=== PATIENT | female | born 1945 | race Caucasian/White ===

== ENCOUNTER 2017-02-24 09:17 | Emergency (ER) | payer MEDICARE, MEDICAID ==
[~2017-02-24] VITALS: Ht 152.4 cm; Wt 68.0 kg
[~2017-02-24 09:17] MED LIST: ALEN70SO3 PO; ASPI-1159 PO; ATOR-2 PO; DILT240C91 PO; ERGO500013 PO; FERR-63 PO; FURO20TA4 PO; HYDR12.529 PO; INSLAN SQ; ZET10 PO
[2017-02-24] MEDS ORDERED: MORPHINE SULFATE 4 MG/ML CPJ (NOT FOR IM USE) IV STA (09:58)
[2017-02-24] MEDS ORDERED: ONDANSETRON HCL 4MG/2ML VIAL IV STA (09:58)
[2017-02-24] MEDS ORDERED: SODIUM CHLORIDE 0.9% 500 ML IV ONE (09:58)
[2017-02-24 10:01] VITALS: BP 154/70
[2017-02-24 10:13] LABS: BASOPHILS % 0.8 % (0.0-2.0); EOSINOPHILS % 3.6 % (0.0-5.0); HEMATOCRIT. 27.5 % (36.0-48.0); HEMOGLOBIN. 9.1 g/dL (12.0-16.0); LYMPHOCYTES % 28.2 % (20.0-50.0); MEAN CORPUSCULAR HEMOGLOBIN 29.9 pg (28.0-32.0); MEAN CORPUSCULAR VOLUME 90.2 fL (81.0-99.0); MEAN PLATELET VOLUME 8.3 fl (7.4-10.4); MONOCYTES % 7.1 % (2.0-8.0); NEUTROPHILS % 60.3 % (40.0-76.0); PLATELET 291 x1000/uL (130-400); RED BLOOD CELL COUNT 3.05 mill/uL (4.2-5.4); RED CELL DISTRIBUTION WIDTH 14.5 % (11.6-14.6)
[2017-02-24 10:20] LABS: CHLORIDE 108 mEq/L (98-107)
[2017-02-24 10:22] LABS: PARTIAL THROMBOPLASTIN TIME 26.8 sec (23.4-31.0); PROTHROMBIN TIME 10.8 sec (9.4-11.6)
[2017-02-24 10:28] LABS: CARBON DIOXIDE 21 mEq/L (21-32)
== END 2017-02-24 13:04 | disposition home or self-care (01) ==
LOC: ER 10:27
DX: M48.00 Spinal stenosis, site unspecified (principal); M54.5 Low back pain; N28.9 Disorder of kidney and ureter, unspecified; I10 Essential (primary) hypertension; E11.9 Type 2 diabetes mellitus without complications; E78.00 Pure hypercholesterolemia, unspecified; Z79.4 Long term (current) use of insulin; Z79.82 Long term (current) use of aspirin
CPT/HCPCS: 36415; 72148; 80053; 83690; 85025; 85610; 85730; 96361; 96374; 96375; 99285; J2270; J2405; J7030; J7040

== ENCOUNTER 2017-06-25 11:08 | Emergency (ER) | payer MEDICARE, MEDICAID ==
[~2017-06-25] VITALS: Ht 152.4 cm; Wt 60.0 kg
[2017-06-25] MEDS ORDERED: SODIUM CHLORIDE 0.9% 1000ML BAG (SEPSIS BOLUS) IV ONE (14:15)
[2017-06-25 14:41] LABS: BASOPHILS % 0.7 % (0.0-2.0); EOSINOPHILS % 0.8 % (0.0-5.0); HEMATOCRIT. 30.5 % (36.0-48.0); HEMOGLOBIN. 10.3 g/dL (12.0-16.0); LYMPHOCYTES % 30.4 % (20.0-50.0); MEAN CORPUSCULAR HEMOGLOBIN 29.6 pg (28.0-32.0); MEAN CORPUSCULAR VOLUME 87.8 fL (81.0-99.0); MEAN PLATELET VOLUME 9.4 fl (7.4-10.4); MONOCYTES % 7.1 % (2.0-8.0); PLATELET 282 x1000/uL (130-400); RED BLOOD CELL COUNT 3.48 mill/uL (4.2-5.4); RED CELL DISTRIBUTION WIDTH 13.5 % (11.6-14.6)
[2017-06-25 14:53] LABS: BETA HYDROXYBUTYRATE 0.3 mMol/L (0.0-0.3); PHOSPHORUS 3.8 mg/dL (2.5-4.9)
[2017-06-25] MEDS ORDERED: INSULIN REGULAR (HUMULIN R) UD 100 UNITS/ML SYR IV ONE (16:15)
[2017-06-25 16:36] LABS: CLARITY URINE CLEAR (CLEAR); COLOR URINE YELLOW (YELLOW); KETONES URINE NEGATIVE (NEGATIVE); LEUKOCYTE ESTERASE URINE TRACE (NEGATIVE); NITRITE URINE NEGATIVE (NEGATIVE); OCCULT BLOOD URINE TRACE (NEGATIVE); PH URINE 6.5 (4.5-8.0); PROTEIN URINE 2+ (NEGATIVE); SPECIFIC GRAVITY URINE 1.019 (1.005-1.030); UROBILINOGEN URINE 0.2 E.U./dL (0.2-1.0)
[2017-06-25] MEDS ORDERED: INSULIN REGULAR (HUMULIN R) 300UNITS/3ML IV NR (16:45)
[2017-06-25 18:45] VITALS: BP 149/72
== END 2017-06-25 19:08 | disposition home or self-care (01) ==
LOC: ER 11:08
DX: E11.65 Type 2 diabetes mellitus with hyperglycemia (principal); I12.9 Hypertensive chronic kidney disease with stage 1 through stage 4 chronic kidney disease, or unspecified chronic kidney disease; N18.9 Chronic kidney disease, unspecified; E78.00 Pure hypercholesterolemia, unspecified; Z79.4 Long term (current) use of insulin
CPT/HCPCS: 36415; 80048; 81001; 82010; 82962; 83605; 83735; 84100; 85025; 96361; 96374; 99285; J1815; J7030

== ENCOUNTER 2019-05-03 16:40 | Inpatient (IN) | payer MEDICARE, MEDICAID ==
[~2019-05-03] VITALS: Ht 152.4 cm; Wt 70.4 kg
[~2019-05-03 16:40] MED LIST changes: -ASPI-1159 PO; +ASPI-1393 PO; +EZET10TA13 PO; -ZET10 PO
[2019-05-03] MEDS ORDERED: DEXTROSE 50% WATER 50ML SYRINGE IV PRN (17:30)
[2019-05-03] MEDS ORDERED: MAGNESIUM/ALUMINUM HYDROXIDE/SIMETHICONE 30ML UDC PO PRN (17:30)
[2019-05-03] MEDS ORDERED: HYDROCODONE/ACETAMINOPHEN 5/325MG TABLET PO PRN (17:30)
[2019-05-03] MEDS ORDERED: ONDANSETRON 4MG ODT PO PRN (17:30)
[2019-05-03] MEDS ORDERED: INSNPH SUBCUT (18:48)
[2019-05-03] MEDS ORDERED: ATOR-2 PO (19:00)
[2019-05-03] MEDS ORDERED: KETO5DRO80 EACHEYE (19:00)
[2019-05-03] MEDS ORDERED: FAMO20TA8 PO (19:00)
[2019-05-03] MEDS ORDERED: ERYT1OIN6 EACHEYE ×2 (19:00→19:10)
[2019-05-03] MEDS ORDERED: NIFE20CA PO (19:08)
[2019-05-03] MEDS ORDERED: AMLO25PO MC (19:08)
[2019-05-03] MEDS ORDERED: PRO1 MT (19:08)
[2019-05-03] MEDS ORDERED: AMLO10TA80 PO (19:08)
[2019-05-03] MEDS ORDERED: CALC-1098 MT (19:08)
[2019-05-03 20:00] VITALS: BP_SYST 168; BP_SYST 169; BP_DIAS 64
[2019-05-03] MEDS: ATORVASTATIN CALCIUM 40MG TABLET PO SCH (20:14)
[2019-05-03] MEDS: HYDRALAZINE HCL 50MG TABLET PO SCH (20:14)
[2019-05-03] MEDS: NIFEDIPINE XL 60MG TAB PO SCH (20:15)
[2019-05-03] MEDS: METOPROLOL TARTRATE 25MG TABLET PO SCH (20:15)
[2019-05-03] MEDS: ACETAMINOPHEN 325MG TABLET PO PRN (20:16)
[2019-05-03] MEDS: BLOOD SUGAR DIAGNOSTIC STRIP TEST SCH (21:41)
[2019-05-03] MEDS: INSULIN LISPRO 100 UNITS/ML SUBCUT SCH (22:34)
[2019-05-04 06:16] LABS: BASOPHILS % 0.9 % (0.0-2.0); EOSINOPHILS % 3.7 % (0.0-5.0); HEMATOCRIT. 22.2 % (36.0-48.0); HEMOGLOBIN. 7.6 g/dL (12.0-16.0); LYMPHOCYTES % 21.8 % (20.0-50.0); MEAN CORPUSCULAR HEMOGLOBIN 31.3 pg (28.0-32.0); MEAN CORPUSCULAR VOLUME 91.3 fL (81.0-99.0); MEAN PLATELET VOLUME 8.4 fl (7.4-10.4); MONOCYTES % 8.4 % (2.0-8.0); NEUTROPHILS % 65.2 % (40.0-76.0); PLATELET 248 x1000/uL (130-400); RED BLOOD CELL COUNT 2.43 mill/uL (4.2-5.4); RED CELL DISTRIBUTION WIDTH 14.8 % (11.6-14.6)
[2019-05-04 06:20] LABS: CHLORIDE 109 mEq/L (98-107)
[2019-05-04] MEDS: INSULIN LISPRO 100 UNITS/ML SUBCUT SCH ×4 (07:22→22:08)
[2019-05-04] MEDS: BLOOD SUGAR DIAGNOSTIC STRIP TEST SCH ×4 (07:22→21:17)
[2019-05-04 07:51] VITALS: BP 157/54
[2019-05-04 08:00] VITALS: BP 154/54
[2019-05-04] MEDS: NIFEDIPINE XL 60MG TAB PO SCH ×2 (08:43→21:17)
[2019-05-04] MEDS: ASPIRIN 81MG TABLET PO SCH (08:43)
[2019-05-04] MEDS: METOPROLOL TARTRATE 25MG TABLET PO SCH ×2 (08:43→21:17)
[2019-05-04] MEDS: HYDRALAZINE HCL 50MG TABLET PO SCH ×3 (08:43→22:03)
[2019-05-04] MEDS: CLOPIDOGREL 75MG TABLET PO SCH (08:43)
[2019-05-04] MEDS: DOCUSATE SODIUM 100MG CAPSULE PO SCH ×2 (08:43→17:46)
[2019-05-04] MEDS: INSULIN NPH (HUMULIN-N) 100 UNITS/ML 3ML VIAL SUBCUT SCH ×2 (09:00→17:59)
[2019-05-04 12:38] VITALS: BP 136/55
[2019-05-04 20:00] VITALS: BP 157/64
[2019-05-04] MEDS: ATORVASTATIN CALCIUM 40MG TABLET PO SCH (21:17)
[2019-05-04] MEDS: ACETAMINOPHEN 325MG TABLET PO PRN (21:18)
[2019-05-05] MEDS: HYDRALAZINE HCL 50MG TABLET PO SCH ×2 (06:17→13:53)
[2019-05-05] MEDS: BLOOD SUGAR DIAGNOSTIC STRIP TEST SCH ×4 (06:17→21:02)
[2019-05-05] MEDS: INSULIN LISPRO 100 UNITS/ML SUBCUT SCH ×4 (06:26→22:08)
[2019-05-05 08:12] VITALS: BP 125/49
[2019-05-05] MEDS: FAMOTIDINE 40MG TABLET PO SCH (08:38)
[2019-05-05] MEDS: METOPROLOL TARTRATE 25MG TABLET PO SCH ×2 (08:39→21:01)
[2019-05-05] MEDS: CLOPIDOGREL 75MG TABLET PO SCH (08:39)
[2019-05-05] MEDS: ASPIRIN 81MG TABLET PO SCH (08:39)
[2019-05-05] MEDS: DOCUSATE SODIUM 100MG CAPSULE PO SCH ×2 (08:39→17:00)
[2019-05-05] MEDS: NIFEDIPINE XL 60MG TAB PO SCH ×2 (08:40→21:01)
[2019-05-05] MEDS: INSULIN NPH (HUMULIN-N) 100 UNITS/ML 3ML VIAL SUBCUT SCH ×2 (08:47→17:11)
[2019-05-05] MEDS ORDERED: FAMOTIDINE 20MG TABLET PO SCH (09:00)
[2019-05-05] MEDS ORDERED: BISACODYL 5MG TABLET PO PRN (09:30)
[2019-05-05] MEDS: LORATADINE 10MG TABLET PO SCH (13:03)
[2019-05-05 13:30] VITALS: BP 127/52
[2019-05-05] MEDS: HYDRALAZINE HCL 25MG TABLET PO SCH ×2 (14:30→22:03)
[2019-05-05 16:30] VITALS: BP 135/55
[2019-05-05] MEDS: CARBAMIDE PEROXIDE 6.5% OTIC SOLN 15ML RIGHT EAR SCH (17:43)
[2019-05-05] MEDS: ACETAMINOPHEN 325MG TABLET PO PRN (17:59)
[2019-05-05 20:00] VITALS: BP 140/59
[2019-05-05] MEDS: ATORVASTATIN CALCIUM 40MG TABLET PO SCH (21:01)
[2019-05-06] MEDS: BLOOD SUGAR DIAGNOSTIC STRIP TEST SCH ×4 (06:13→21:13)
[2019-05-06] MEDS: HYDRALAZINE HCL 25MG TABLET PO SCH ×3 (06:13→22:03)
[2019-05-06 07:26] LABS: BASOPHILS % 0.6 % (0.0-2.0); EOSINOPHILS % 3.1 % (0.0-5.0); HEMATOCRIT. 21.2 % (36.0-48.0); HEMOGLOBIN. 7.1 g/dL (12.0-16.0); LYMPHOCYTES % 22.5 % (20.0-50.0); MEAN CORPUSCULAR HEMOGLOBIN 30.9 pg (28.0-32.0); MEAN CORPUSCULAR VOLUME 92.5 fL (81.0-99.0); MEAN PLATELET VOLUME 8.2 fl (7.4-10.4); MONOCYTES % 7.8 % (2.0-8.0); PLATELET 256 x1000/uL (130-400); RED BLOOD CELL COUNT 2.29 mill/uL (4.2-5.4); RED CELL DISTRIBUTION WIDTH 15.6 % (11.6-14.6)
[2019-05-06 08:00] VITALS: BP 127/52
[2019-05-06 08:07] LABS: CHLORIDE 108 mEq/L (98-107)
[2019-05-06 08:11] LABS: PHOSPHORUS 5.1 mg/dL (2.5-4.9); TOTAL IRON BINDING CAPACITY 184 ug/dL (250-450)
[2019-05-06] MEDS: CLOPIDOGREL 75MG TABLET PO SCH (08:37)
[2019-05-06] MEDS: ASPIRIN 81MG TABLET PO SCH (08:37)
[2019-05-06] MEDS: NIFEDIPINE XL 60MG TAB PO SCH ×2 (08:38→21:13)
[2019-05-06] MEDS: METOPROLOL TARTRATE 25MG TABLET PO SCH ×2 (08:38→21:12)
[2019-05-06] MEDS: LORATADINE 10MG TABLET PO SCH (08:38)
[2019-05-06] MEDS: FAMOTIDINE 40MG TABLET PO SCH (08:38)
[2019-05-06] MEDS: DOCUSATE SODIUM 100MG CAPSULE PO SCH ×2 (08:40→17:00)
[2019-05-06] MEDS: CARBAMIDE PEROXIDE 6.5% OTIC SOLN 15ML RIGHT EAR SCH ×2 (08:41→21:10)
[2019-05-06] MEDS: INSULIN LISPRO 100 UNITS/ML SUBCUT SCH ×4 (09:00→21:20)
[2019-05-06] MEDS: INSULIN NPH (HUMULIN-N) 100 UNITS/ML 3ML VIAL SUBCUT SCH ×2 (09:00→17:04)
[2019-05-06 09:20] LABS: VITAMIN B12 SERUM > 2000.0 pg/mL (211-911)
[2019-05-06 14:20] VITALS: BP 139/59
[2019-05-06 14:52] LABS: FERRITIN 318 ng/mL (10-291)
[2019-05-06 20:00] VITALS: BP 135/56
[2019-05-06] MEDS: ACETAMINOPHEN 325MG TABLET PO PRN (21:11)
[2019-05-06] MEDS: ATORVASTATIN CALCIUM 40MG TABLET PO SCH (21:13)
[2019-05-07] MEDS: HYDRALAZINE HCL 25MG TABLET PO SCH ×3 (05:24→21:56)
[2019-05-07] MEDS: BLOOD SUGAR DIAGNOSTIC STRIP TEST SCH ×4 (06:02→20:06)
[2019-05-07] MEDS: INSULIN LISPRO 100 UNITS/ML SUBCUT SCH ×4 (06:06→20:14)
[2019-05-07 07:11] LABS: CLARITY URINE CLEAR (CLEAR); COLOR URINE YELLOW (YELLOW); KETONES URINE NEGATIVE (NEGATIVE); LEUKOCYTE ESTERASE URINE NEGATIVE (NEGATIVE); NITRITE URINE NEGATIVE (NEGATIVE); OCCULT BLOOD URINE NEGATIVE (NEGATIVE); PH URINE 5.5 (4.5-8.0); PROTEIN URINE 2+ (NEGATIVE); SPECIFIC GRAVITY URINE 1.009 (1.005-1.030); UROBILINOGEN URINE 0.2 E.U./dL (0.2-1.0)
[2019-05-07 07:23] LABS: BASOPHILS % 0.6 % (0.0-2.0); LYMPHOCYTES % 24.9 % (20.0-50.0); MEAN CORPUSCULAR VOLUME 92.9 fL (81.0-99.0); MEAN PLATELET VOLUME 8.6 fl (7.4-10.4); MONOCYTES % 9.2 % (2.0-8.0); NEUTROPHILS % 62.3 % (40.0-76.0); PLATELET 255 x1000/uL (130-400); RED BLOOD CELL COUNT 2.25 mill/uL (4.2-5.4); RED CELL DISTRIBUTION WIDTH 15.4 % (11.6-14.6)
[2019-05-07 07:46] LABS: PHOSPHORUS 4.7 mg/dL (2.5-4.9)
[2019-05-07 07:48] LABS: HEMATOCRIT. 20.9 % (36.0-48.0)
[2019-05-07 08:00] VITALS: BP 128/59
[2019-05-07] MEDS: ASPIRIN 81MG TABLET PO SCH (09:53)
[2019-05-07] MEDS: METOPROLOL TARTRATE 25MG TABLET PO SCH ×2 (09:54→20:05)
[2019-05-07] MEDS: LORATADINE 10MG TABLET PO SCH (09:54)
[2019-05-07] MEDS: DOCUSATE SODIUM 100MG CAPSULE PO SCH ×2 (09:54→18:08)
[2019-05-07] MEDS: NIFEDIPINE XL 60MG TAB PO SCH ×2 (09:54→20:06)
[2019-05-07] MEDS: FAMOTIDINE 20MG TABLET PO SCH (09:54)
[2019-05-07] MEDS: CLOPIDOGREL 75MG TABLET PO SCH (09:55)
[2019-05-07] MEDS: INSULIN NPH (HUMULIN-N) 100 UNITS/ML 3ML VIAL SUBCUT SCH ×2 (10:21→18:23)
[2019-05-07] MEDS: CARBAMIDE PEROXIDE 6.5% OTIC SOLN 15ML RIGHT EAR SCH ×2 (10:22→18:09)
[2019-05-07 13:25] VITALS: BP 149/59
[2019-05-07 14:25] VITALS: BP 143/62
[2019-05-07 15:22] VITALS: BP 152/64
[2019-05-07] MEDS: ACETAMINOPHEN 325MG TABLET PO PRN (18:08)
[2019-05-07 20:00] VITALS: BP 155/66
[2019-05-07] MEDS: ATORVASTATIN CALCIUM 40MG TABLET PO SCH (20:06)
[2019-05-08] MEDS: HYDRALAZINE HCL 25MG TABLET PO SCH ×2 (05:38→13:22)
[2019-05-08] MEDS: BLOOD SUGAR DIAGNOSTIC STRIP TEST SCH ×2 (05:41→11:40)
[2019-05-08] MEDS: INSULIN LISPRO 100 UNITS/ML SUBCUT SCH ×2 (06:05→13:26)
[2019-05-08 07:49] LABS: CHLORIDE 109 mEq/L (98-107)
[2019-05-08 07:54] LABS: PHOSPHORUS 4.8 mg/dL (2.5-4.9)
[2019-05-08 08:06] LABS: BASOPHILS % 0.8 % (0.0-2.0); EOSINOPHILS % 0.8 % (0.0-5.0); HEMATOCRIT. 25.1 % (36.0-48.0); LYMPHOCYTES % 12.8 % (20.0-50.0); MEAN CORPUSCULAR HEMOGLOBIN 31.5 pg (28.0-32.0); MEAN CORPUSCULAR VOLUME 92.7 fL (81.0-99.0); MEAN PLATELET VOLUME 8.5 fl (7.4-10.4); MONOCYTES % 5.7 % (2.0-8.0); NEUTROPHILS % 79.9 % (40.0-76.0); PLATELET 254 x1000/uL (130-400); RED BLOOD CELL COUNT 2.71 mill/uL (4.2-5.4)
[2019-05-08 08:14] VITALS: BP 138/62
[2019-05-08 08:22] LABS: HEMOGLOBIN. 8.5 g/dL (12.0-16.0)
[2019-05-08] MEDS: FAMOTIDINE 20MG TABLET PO SCH (08:28)
[2019-05-08] MEDS: CLOPIDOGREL 75MG TABLET PO SCH (08:28)
[2019-05-08] MEDS: LORATADINE 10MG TABLET PO SCH (08:28)
[2019-05-08] MEDS: ASPIRIN 81MG TABLET PO SCH (08:28)
[2019-05-08] MEDS: NIFEDIPINE XL 60MG TAB PO SCH (08:28)
[2019-05-08] MEDS: METOPROLOL TARTRATE 25MG TABLET PO SCH (08:28)
[2019-05-08] MEDS: DOCUSATE SODIUM 100MG CAPSULE PO SCH (08:29)
[2019-05-08] MEDS: CARBAMIDE PEROXIDE 6.5% OTIC SOLN 15ML RIGHT EAR SCH (08:34)
[2019-05-08] MEDS: INSULIN NPH (HUMULIN-N) 100 UNITS/ML 3ML VIAL SUBCUT SCH (08:36)
[2019-05-08 11:44] VITALS: BP 138/62
[2019-05-08 13:23] VITALS: BP 135/58
[2019-05-09] MEDS ORDERED: EPOETIN ALFA 10000UNITS/ML VIAL SUBCUT SCH (21:00)
[2019-05-12 13:11] LABS: 25-HYDROXY VITAMIN D3 21 ng/mL (.)
== END 2019-05-08 15:51 | disposition home health service (06) | DRG 280 ==
PROVIDERS: ADMIT Physical Medicine & Rehabilitation Spinal Cord Injury Medicine; ATTEND Hospitalist
PROC: 30233N1 Transfusion of Nonautologous Red Blood Cells into Peripheral Vein, Percutaneous Approach (ICD-10-PCS; principal; 2019-05-07)
DX: I21.4 Non-ST elevation (NSTEMI) myocardial infarction (principal); I50.33 Acute on chronic diastolic (congestive) heart failure; N18.4 Chronic kidney disease, stage 4 (severe); N17.9 Acute kidney failure, unspecified; I13.0 Hypertensive heart and chronic kidney disease with heart failure and stage 1 through stage 4 chronic kidney disease, or unspecified chronic kidney disease; E46 Unspecified protein-calorie malnutrition; D63.1 Anemia in chronic kidney disease; E11.22 Type 2 diabetes mellitus with diabetic chronic kidney disease; K21.9 Gastro-esophageal reflux disease without esophagitis; M81.0 Age-related osteoporosis without current pathological fracture; E11.65 Type 2 diabetes mellitus with hyperglycemia; K59.09 Other constipation; H91.91 Unspecified hearing loss, right ear; E78.5 Hyperlipidemia, unspecified; I25.5 Ischemic cardiomyopathy; E61.1 Iron deficiency; E66.01 Morbid (severe) obesity due to excess calories; E78.00 Pure hypercholesterolemia, unspecified; I25.10 Atherosclerotic heart disease of native coronary artery without angina pectoris; I25.2 Old myocardial infarction; M21.70 Unequal limb length (acquired), unspecified site; Z79.4 Long term (current) use of insulin; Z95.5 Presence of coronary angioplasty implant and graft; Z68.30 Body mass index [BMI] 30.0-30.9, adult
CPT/HCPCS: 36415; 80048; 80053; 81003; 82270; 82306; 82607; 82728; 82746; 82962; 83540; 83550; 83735; 84100; 84134; 84443; 85025; 86850; 86900; 86920; 93970; 97110; 97116; 97162; 97166; 97530; 97535; J1815; J7040; P9016

== ENCOUNTER 2019-05-23 08:19 | Inpatient (IN) | payer MEDICARE, MEDICAID ==
[~2019-05-23] VITALS: Ht 162.6 cm; Wt 68.6 kg
[2019-05-23] VITALS (45 sets, daily range): BP systolic 109–157; BP diastolic 54–80
[~2019-05-23 08:19] MED LIST changes: +AMLO10TA80 PO; +AMLO25PO MC; -ASPI-1393 PO; +ASPI-1497 PO; +CALC-1098 MT; +ERYT1OIN6 EACHEYE; +FAMO20TA8 PO; +INSNPH SUBCUT; +KETO5DRO80 EACHEYE; +NIFE20CA PO; +PRO1 MT
[2019-05-23] MEDS ORDERED: NITROGLYCERIN 50MCG/ML 10ML VIAL (CATH LAB) IV ONE (08:50)
[2019-05-23] MEDS ORDERED: HEPARIN SODIUM 1,000 UNIT/1ML VIAL IV ONE ×2 (08:50→10:38)
[2019-05-23] MEDS ORDERED: PHENYLEPHRINE 100MCG/ML 10ML VIAL (CATH LAB) IV ONE (08:50)
[2019-05-23] MEDS ORDERED: NICARDIPINE 100MCG/ML 10ML VIAL (CATH LAB) IV ONE (08:50)
[2019-05-23] MEDS ORDERED: MORPHINE SULFATE 4 MG/ML CPJ (NOT FOR IM USE) IV STA (09:14)
[2019-05-23 09:26] LABS: BASOPHILS % 0.6 % (0.0-2.0); EOSINOPHILS % 1.9 % (0.0-5.0); HEMATOCRIT. 28.5 % (36.0-48.0); HEMOGLOBIN. 9.4 g/dL (12.0-16.0); LYMPHOCYTES % 13.3 % (20.0-50.0); MEAN CORPUSCULAR HEMOGLOBIN 30.7 pg (28.0-32.0); MEAN CORPUSCULAR VOLUME 93.3 fL (81.0-99.0); MEAN PLATELET VOLUME 9.1 fl (7.4-10.4); MONOCYTES % 3.7 % (2.0-8.0); NEUTROPHILS % 80.5 % (40.0-76.0); PLATELET 265 x1000/uL (130-400); RED BLOOD CELL COUNT 3.05 mill/uL (4.2-5.4); RED CELL DISTRIBUTION WIDTH 15.4 % (11.6-14.6)
[2019-05-23 09:32] LABS: CHLORIDE 109 mEq/L (98-107)
[2019-05-23] MEDS ORDERED: MIDAZOLAM HCL 2 MG/2 ML VIAL ONE (10:31)
[2019-05-23] MEDS ORDERED: FENTANYL CITRATE/PF 50MCG/ML 2ML VIAL ONE (10:31)
[2019-05-23] MEDS ORDERED: ASPIRIN/SOD BICARB/CITRIC ACID 324MG TAB EFF ONE (10:32)
[2019-05-23] MEDS ORDERED: IOHEXOL-300 100 ML BOTTLE ONE (10:34)
[2019-05-23] MEDS ORDERED: IODIXANOL 320MG/ML 100 ML BOTTLE IV ONE (10:34)
[2019-05-23] MEDS ORDERED: LIDOCAINE HCL 1% 20ML VIAL (Pyxis) INJ ONE (10:34)
[2019-05-23] MEDS ORDERED: FUROSEMIDE 40MG/4ML VIAL ONE (10:44)
[2019-05-23] MEDS ORDERED: NITROGLYCERIN OINT 1GM/INCH UDPKT TD ONE (10:51)
[2019-05-23] MEDS ORDERED: NITROGLYCERIN 50MG PREMIX 250 ML IV ONE (11:03)
[2019-05-23] MEDS ORDERED: ONDANSETRON HCL 4MG/2ML INJ IV PRN (11:15)
[2019-05-23] MEDS ORDERED: ATROPINE SULFATE 1MG/10ML SYR IV PRN (11:15)
[2019-05-23] MEDS ORDERED: NITROGLYCERIN 50MG PREMIX 250 ML IV SCH (11:15)
[2019-05-23] MEDS ORDERED: CLOPIDOGREL 75MG TABLET PO SCH (11:15)
[2019-05-23] MEDS ORDERED: ACETAMINOPHEN 325MG TABLET PO PRN (11:15)
[2019-05-23] MEDS ORDERED: MORPHINE SULFATE 2 MG/ML CPJ (NOT FOR IM USE) IV PRN (11:15)
[2019-05-23] MEDS ORDERED: DEXTROSE 50% WATER 50ML SYRINGE IV PRN ×2 (11:30→15:00)
[2019-05-23 11:56] LABS: BG BASE EXCESS -8.7 mmol/L (-2.0-2.0); BG CARBOXYHEMOGLOBIN 0.3 % (0.5-1.5); BG DEOXYHEMOGLOBIN 11.2 % (0.0-5.0); BG FRACTION INSPIRED OXYGEN 100; BG HCO3 ACT 16.5 mmol/L (22.0-26.0); BG METHEMOGLOBIN 0.3 % (0.0-1.5); BG OXYGEN SATURATION 88.7 % (92.0-98.5); BG OXYHEMOGLOBIN 88.2 % (94.0-97.0); BG PH 7.318 (7.350-7.450); BG SAMPLE SITE A-LINE; BG TOTAL HEMOGLOBIN 9.2 g/dL (12.0-18.0); BG VENT MODE MASK - NRB
[2019-05-23] MEDS ORDERED: BLOOD SUGAR DIAGNOSTIC STRIP TEST SCH (13:00)
[2019-05-23] MEDS ORDERED: INSULIN LISPRO 100 UNITS/ML SUBCUT SCH (13:20)
[2019-05-23] MEDS: HYDRALAZINE HCL 25MG TABLET PO SCH ×2 (13:55→21:59)
[2019-05-23] MEDS: AMLODIPINE 5MG TABLET PO SCH ×2 (13:55→21:53)
[2019-05-23] MEDS: NITROGLYCERIN OINT 1GM/INCH UDPKT TD SCH ×2 (13:56→21:53)
[2019-05-23] MEDS ORDERED: IPRATROPIUM/ALBUTEROL 0.5-3(2.5)MG/3ML NEB HHN PRN (15:00)
[2019-05-23] MEDS ORDERED: FUROSEMIDE 40MG/4ML VIAL IVP SCH (15:00)
[2019-05-23] MEDS ORDERED: MAGNESIUM/ALUMINUM HYDROXIDE/SIMETHICONE 30ML UDC PO PRN (15:00)
[2019-05-23] MEDS ORDERED: ASPIRIN 325MG TABLET PO SCH (17:00)
[2019-05-23] MEDS: BLOOD SUGAR DIAGNOSTIC STRIP TEST SCH ×2 (17:22→21:54)
[2019-05-23] MEDS: ASPIRIN 81MG TABLET PO SCH (17:23)
[2019-05-23] MEDS: INSULIN LISPRO 100 UNITS/ML SUBCUT SCH ×2 (17:31→22:50)
[2019-05-23] MEDS ORDERED: CARVEDILOL 3.125 MG TABLET PO SCH (21:00)
[2019-05-23] MEDS: SODIUM CHLORIDE 0.9% INJ 3ML FLUSH IVF SCH (21:38)
[2019-05-23] MEDS: RANOLAZINE 500 MG TAB.SR.12H PO SCH (21:53)
[2019-05-23] MEDS: ATORVASTATIN CALCIUM 40MG TABLET PO SCH (21:54)
[2019-05-23] MEDS ORDERED: INSULIN GLARGINE UD 100 UNITS/ML SYR SUBCUT SCH (22:00)
[2019-05-24] VITALS (55 sets, daily range): BP systolic 95–142; BP diastolic 42–81
[2019-05-24 06:16] LABS: BASOPHILS % 0.6 % (0.0-2.0); EOSINOPHILS % 1.9 % (0.0-5.0); HEMATOCRIT. 24.3 % (36.0-48.0); HEMOGLOBIN. 8.3 g/dL (12.0-16.0); LYMPHOCYTES % 13.3 % (20.0-50.0); MEAN CORPUSCULAR HEMOGLOBIN 31.2 pg (28.0-32.0); MEAN CORPUSCULAR VOLUME 91.9 fL (81.0-99.0); MONOCYTES % 8.1 % (2.0-8.0); NEUTROPHILS % 76.1 % (40.0-76.0); PLATELET 223 x1000/uL (130-400); RED BLOOD CELL COUNT 2.65 mill/uL (4.2-5.4); RED CELL DISTRIBUTION WIDTH 15.7 % (11.6-14.6)
[2019-05-24 06:30] LABS: CHLORIDE 109 mEq/L (98-107)
[2019-05-24] MEDS: NITROGLYCERIN OINT 1GM/INCH UDPKT TD SCH ×5 (06:31→20:00)
[2019-05-24] MEDS: SODIUM CHLORIDE 0.9% INJ 3ML FLUSH IVF SCH ×3 (06:32→21:18)
[2019-05-24] MEDS: HYDRALAZINE HCL 25MG TABLET PO SCH ×3 (06:32→21:18)
[2019-05-24] MEDS: BLOOD SUGAR DIAGNOSTIC STRIP TEST SCH ×4 (07:50→21:18)
[2019-05-24] MEDS: INSULIN LISPRO 100 UNITS/ML SUBCUT SCH ×4 (08:20→21:00)
[2019-05-24] MEDS ORDERED: FUROSEMIDE 40MG/4ML VIAL IVP NR (08:30)
[2019-05-24 08:49] LABS: TOTAL IRON BINDING CAPACITY 247 ug/dL (250-450)
[2019-05-24] MEDS: AMLODIPINE 5MG TABLET PO SCH ×2 (09:03→21:00)
[2019-05-24] MEDS: CLOPIDOGREL 75MG TABLET PO SCH (09:03)
[2019-05-24] MEDS: CARVEDILOL 3.125 MG TABLET PO SCH ×2 (09:04→21:00)
[2019-05-24] MEDS: ASPIRIN 81MG TABLET PO SCH ×2 (09:04→16:34)
[2019-05-24] MEDS: RANOLAZINE 500 MG TAB.SR.12H PO SCH ×2 (11:00→21:17)
[2019-05-24 12:04] LABS: BG CARBOXYHEMOGLOBIN 0.3 % (0.5-1.5); BG DEOXYHEMOGLOBIN 1.9 % (0.0-5.0); BG FRACTION INSPIRED OXYGEN 70; BG HCO3 ACT 24.2 mmol/L (22.0-26.0); BG METHEMOGLOBIN 0.1 % (0.0-1.5); BG OXYGEN SATURATION 98.1 % (92.0-98.5); BG OXYHEMOGLOBIN 97.7 % (94.0-97.0); BG PCO2 37.6 mmHg (35.0-45.0); BG PH 7.427 (7.350-7.450); BG PO2 121.1 mmHg (75.0-100.0); BG SAMPLE SITE RIGHT BRACHIAL; BG TOTAL HEMOGLOBIN 8.9 g/dL (12.0-18.0); BG VENT MODE MASK - BIPAP; BG VENT RATE 14 set
[2019-05-24] MEDS: ENOXAPARIN 30MG/0.3ML SYR SUBCUT SCH (17:00)
[2019-05-24] MEDS ORDERED: INSULIN NPH (HUMULIN-N) 100 UNITS/ML 3ML VIAL SUBCUT SCH (17:50)
[2019-05-24] MEDS ORDERED: EPOETIN ALFA 10000UNITS/ML VIAL SUBCUT SCH (21:00)
[2019-05-24] MEDS: ATORVASTATIN CALCIUM 40MG TABLET PO SCH (21:16)
[2019-05-25] VITALS (40 sets, daily range): BP systolic 94–136; BP diastolic 45–73
[2019-05-25] MEDS: NITROGLYCERIN OINT 1GM/INCH UDPKT TD SCH ×7 (04:00→23:53)
[2019-05-25 05:57] LABS: BASOPHILS % 0.8 % (0.0-2.0); EOSINOPHILS % 5.8 % (0.0-5.0); HEMATOCRIT. 23.6 % (36.0-48.0); LYMPHOCYTES % 19.5 % (20.0-50.0); MEAN CORPUSCULAR HEMOGLOBIN 31.6 pg (28.0-32.0); MEAN PLATELET VOLUME 9.3 fl (7.4-10.4); MONOCYTES % 9.4 % (2.0-8.0); NEUTROPHILS % 64.5 % (40.0-76.0); PLATELET 194 x1000/uL (130-400); RED BLOOD CELL COUNT 2.54 mill/uL (4.2-5.4); RED CELL DISTRIBUTION WIDTH 15.4 % (11.6-14.6)
[2019-05-25 06:12] LABS: CHLORIDE 109 mEq/L (98-107)
[2019-05-25] MEDS: SODIUM CHLORIDE 0.9% INJ 3ML FLUSH IVF SCH ×3 (06:17→21:24)
[2019-05-25 06:21] LABS: PHOSPHORUS 5.2 mg/dL (2.5-4.9)
[2019-05-25] MEDS: HYDRALAZINE HCL 25MG TABLET PO SCH (06:21)
[2019-05-25] MEDS: INSULIN LISPRO 100 UNITS/ML SUBCUT SCH ×4 (08:20→20:50)
[2019-05-25] MEDS: BLOOD SUGAR DIAGNOSTIC STRIP TEST SCH ×4 (08:23→20:49)
[2019-05-25] MEDS: AMLODIPINE 5MG TABLET PO SCH ×2 (09:03→21:00)
[2019-05-25] MEDS: ASPIRIN 81MG TABLET PO SCH ×2 (09:03→16:49)
[2019-05-25] MEDS: RANOLAZINE 500 MG TAB.SR.12H PO SCH ×2 (09:03→20:49)
[2019-05-25] MEDS: CLOPIDOGREL 75MG TABLET PO SCH (09:04)
[2019-05-25] MEDS: CARVEDILOL 3.125 MG TABLET PO SCH ×2 (09:04→20:49)
[2019-05-25] MEDS ORDERED: INSULIN NPH (HUMULIN-N) 100 UNITS/ML 3ML VIAL SUBCUT SCH ×2 (09:30→17:50)
[2019-05-25] MEDS ORDERED: FUROSEMIDE 40MG TABLET PO SCH (10:15)
[2019-05-25] MEDS: INSULIN NPH (HUMULIN-N) 100 UNITS/ML 3ML VIAL SUBCUT SCH (10:22)
[2019-05-25] MEDS: FUROSEMIDE 40MG TABLET PO SCH (10:25)
[2019-05-25] MEDS: IRON SUCROSE COMPLEX 100 MG/5 ML ML IV SCH (10:26)
[2019-05-25] MEDS ORDERED: SODIUM POLYSTYRENE SULFONATE 15 G/60 ML BOT PO NR (10:30)
[2019-05-25] MEDS: ENOXAPARIN 30MG/0.3ML SYR SUBCUT SCH (17:45)
[2019-05-25] MEDS: FAMOTIDINE 20MG TABLET PO SCH (20:49)
[2019-05-25] MEDS: ATORVASTATIN CALCIUM 40MG TABLET PO SCH (20:49)
[2019-05-26] VITALS (41 sets, daily range): BP systolic 112–144; BP diastolic 50–77
[2019-05-26] MEDS: NITROGLYCERIN OINT 1GM/INCH UDPKT TD SCH ×4 (04:05→17:22)
[2019-05-26 04:58] LABS: BASOPHILS % 0.8 % (0.0-2.0); EOSINOPHILS % 5.4 % (0.0-5.0); HEMATOCRIT. 24.4 % (36.0-48.0); HEMOGLOBIN. 8.3 g/dL (12.0-16.0); LYMPHOCYTES % 21.6 % (20.0-50.0); MEAN CORPUSCULAR HEMOGLOBIN 31.3 pg (28.0-32.0); MEAN CORPUSCULAR VOLUME 91.6 fL (81.0-99.0); MEAN PLATELET VOLUME 9.4 fl (7.4-10.4); MONOCYTES % 9.6 % (2.0-8.0); NEUTROPHILS % 62.6 % (40.0-76.0); PLATELET 204 x1000/uL (130-400); RED BLOOD CELL COUNT 2.66 mill/uL (4.2-5.4); RED CELL DISTRIBUTION WIDTH 15.6 % (11.6-14.6)
[2019-05-26 05:04] LABS: PHOSPHORUS 5.6 mg/dL (2.5-4.9)
[2019-05-26] MEDS: SODIUM CHLORIDE 0.9% INJ 3ML FLUSH IVF SCH ×3 (06:36→21:18)
[2019-05-26] MEDS: BLOOD SUGAR DIAGNOSTIC STRIP TEST SCH ×4 (08:14→21:17)
[2019-05-26] MEDS: INSULIN LISPRO 100 UNITS/ML SUBCUT SCH ×4 (08:14→21:18)
[2019-05-26] MEDS: ASPIRIN 81MG TABLET PO SCH ×2 (08:52→17:20)
[2019-05-26] MEDS: IRON SUCROSE COMPLEX 100 MG/5 ML ML IV SCH (08:52)
[2019-05-26] MEDS: RANOLAZINE 500 MG TAB.SR.12H PO SCH ×2 (08:52→21:16)
[2019-05-26] MEDS: CLOPIDOGREL 75MG TABLET PO SCH (08:52)
[2019-05-26] MEDS: AMLODIPINE 5MG TABLET PO SCH (08:53)
[2019-05-26] MEDS: CARVEDILOL 3.125 MG TABLET PO SCH ×2 (08:53→21:16)
[2019-05-26] MEDS: FUROSEMIDE 40MG TABLET PO SCH (08:53)
[2019-05-26] MEDS: INSULIN NPH (HUMULIN-N) 100 UNITS/ML 3ML VIAL SUBCUT SCH (09:21)
[2019-05-26] MEDS: ENOXAPARIN 30MG/0.3ML SYR SUBCUT SCH (17:21)
[2019-05-26] MEDS: ATORVASTATIN CALCIUM 40MG TABLET PO SCH (21:16)
[2019-05-26] MEDS: NIFEDIPINE XL 30MG TAB PO SCH (21:17)
[2019-05-26] MEDS: HYDRALAZINE HCL 25MG TABLET PO SCH (21:17)
[2019-05-26] MEDS: FAMOTIDINE 20MG TABLET PO SCH (21:17)
[2019-05-27] VITALS (12 sets, daily range): BP systolic 108–138; BP diastolic 48–69
[2019-05-27] MEDS: NITROGLYCERIN OINT 1GM/INCH UDPKT TD SCH ×5 (00:23→23:22)
[2019-05-27] MEDS: SODIUM CHLORIDE 0.9% INJ 3ML FLUSH IVF SCH ×3 (05:31→21:23)
[2019-05-27] MEDS: BLOOD SUGAR DIAGNOSTIC STRIP TEST SCH ×4 (05:31→20:25)
[2019-05-27] MEDS: INSULIN LISPRO 100 UNITS/ML SUBCUT SCH ×4 (05:31→20:38)
[2019-05-27 06:57] LABS: BASOPHILS % 0.9 % (0.0-2.0); EOSINOPHILS % 4.7 % (0.0-5.0); HEMATOCRIT. 24.9 % (36.0-48.0); HEMOGLOBIN. 8.4 g/dL (12.0-16.0); MEAN CORPUSCULAR VOLUME 91.9 fL (81.0-99.0); MEAN PLATELET VOLUME 9.4 fl (7.4-10.4); MONOCYTES % 9.3 % (2.0-8.0); NEUTROPHILS % 65.1 % (40.0-76.0); PLATELET 211 x1000/uL (130-400); RED BLOOD CELL COUNT 2.71 mill/uL (4.2-5.4); RED CELL DISTRIBUTION WIDTH 15.1 % (11.6-14.6)
[2019-05-27 08:07] LABS: PHOSPHORUS 5.5 mg/dL (2.5-4.9)
[2019-05-27] MEDS: CLOPIDOGREL 75MG TABLET PO SCH (08:51)
[2019-05-27] MEDS: IRON SUCROSE COMPLEX 100 MG/5 ML ML IV SCH (08:51)
[2019-05-27] MEDS: RANOLAZINE 500 MG TAB.SR.12H PO SCH ×2 (08:51→20:36)
[2019-05-27] MEDS: ASPIRIN 81MG TABLET PO SCH ×2 (08:51→17:09)
[2019-05-27] MEDS: CARVEDILOL 3.125 MG TABLET PO SCH ×2 (08:52→20:38)
[2019-05-27] MEDS: NIFEDIPINE XL 30MG TAB PO SCH ×2 (08:52→20:38)
[2019-05-27] MEDS: FUROSEMIDE 40MG TABLET PO SCH (08:52)
[2019-05-27] MEDS: HYDRALAZINE HCL 25MG TABLET PO SCH ×2 (08:52→20:38)
[2019-05-27] MEDS: ENOXAPARIN 30MG/0.3ML SYR SUBCUT SCH (17:09)
[2019-05-27] MEDS: FAMOTIDINE 20MG TABLET PO SCH (20:36)
[2019-05-27] MEDS: ATORVASTATIN CALCIUM 40MG TABLET PO SCH (20:36)
[2019-05-28] VITALS (12 sets, daily range): BP systolic 102–143; BP diastolic 51–69
[2019-05-28] MEDS: SODIUM CHLORIDE 0.9% INJ 3ML FLUSH IVF SCH ×3 (05:26→22:00)
[2019-05-28] MEDS: BLOOD SUGAR DIAGNOSTIC STRIP TEST SCH ×4 (06:12→20:29)
[2019-05-28] MEDS: INSULIN LISPRO 100 UNITS/ML SUBCUT SCH ×4 (06:12→20:38)
[2019-05-28] MEDS: NITROGLYCERIN OINT 1GM/INCH UDPKT TD SCH ×4 (06:22→23:39)
[2019-05-28 06:40] LABS: BASOPHILS % 0.7 % (0.0-2.0); EOSINOPHILS % 4.3 % (0.0-5.0); HEMATOCRIT. 23.1 % (36.0-48.0); HEMOGLOBIN. 7.9 g/dL (12.0-16.0); LYMPHOCYTES % 21.2 % (20.0-50.0); MEAN CORPUSCULAR HEMOGLOBIN 31.2 pg (28.0-32.0); MEAN CORPUSCULAR VOLUME 91.4 fL (81.0-99.0); MEAN PLATELET VOLUME 9.5 fl (7.4-10.4); MONOCYTES % 8.8 % (2.0-8.0); PLATELET 193 x1000/uL (130-400); RED BLOOD CELL COUNT 2.52 mill/uL (4.2-5.4); RED CELL DISTRIBUTION WIDTH 15.3 % (11.6-14.6)
[2019-05-28 06:57] LABS: PHOSPHORUS 5.7 mg/dL (2.5-4.9)
[2019-05-28] MEDS ORDERED: FUROSEMIDE 20MG TABLET PO SCH (09:00)
[2019-05-28] MEDS: NIFEDIPINE XL 30MG TAB PO SCH ×2 (09:00→20:28)
[2019-05-28] MEDS: ASPIRIN 81MG TABLET PO SCH ×2 (09:09→17:26)
[2019-05-28] MEDS: RANOLAZINE 500 MG TAB.SR.12H PO SCH ×2 (09:09→20:28)
[2019-05-28] MEDS: CLOPIDOGREL 75MG TABLET PO SCH (09:09)
[2019-05-28] MEDS: IRON SUCROSE COMPLEX 100 MG/5 ML ML IV SCH (09:09)
[2019-05-28] MEDS: HYDRALAZINE HCL 25MG TABLET PO SCH ×2 (09:10→20:28)
[2019-05-28] MEDS: CARVEDILOL 3.125 MG TABLET PO SCH ×2 (09:10→20:29)
[2019-05-28] MEDS: FUROSEMIDE 40MG/4ML VIAL IVP SCH (13:03)
[2019-05-28] MEDS: ENOXAPARIN 30MG/0.3ML SYR SUBCUT SCH (17:26)
[2019-05-28] MEDS: ACETAMINOPHEN 325MG TABLET PO PRN (17:43)
[2019-05-28] MEDS: FAMOTIDINE 20MG TABLET PO SCH (20:28)
[2019-05-28] MEDS: ATORVASTATIN CALCIUM 40MG TABLET PO SCH (20:28)
[2019-05-29] VITALS (12 sets, daily range): BP systolic 109–126; BP diastolic 55–67
[2019-05-29] MEDS: SODIUM CHLORIDE 0.9% INJ 3ML FLUSH IVF SCH ×3 (06:00→21:42)
[2019-05-29] MEDS: BLOOD SUGAR DIAGNOSTIC STRIP TEST SCH ×4 (06:36→21:42)
[2019-05-29] MEDS: NITROGLYCERIN OINT 1GM/INCH UDPKT TD SCH ×3 (06:36→17:02)
[2019-05-29 07:12] LABS: BASOPHILS % 0.7 % (0.0-2.0); EOSINOPHILS % 4.2 % (0.0-5.0); HEMATOCRIT. 25.4 % (36.0-48.0); HEMOGLOBIN. 8.5 g/dL (12.0-16.0); LYMPHOCYTES % 14.2 % (20.0-50.0); MEAN CORPUSCULAR HEMOGLOBIN 30.9 pg (28.0-32.0); MEAN CORPUSCULAR VOLUME 92.3 fL (81.0-99.0); MEAN PLATELET VOLUME 9.5 fl (7.4-10.4); MONOCYTES % 9.4 % (2.0-8.0); NEUTROPHILS % 71.5 % (40.0-76.0); PLATELET 216 x1000/uL (130-400); RED BLOOD CELL COUNT 2.75 mill/uL (4.2-5.4); RED CELL DISTRIBUTION WIDTH 15.4 % (11.6-14.6)
[2019-05-29] MEDS: INSULIN LISPRO 100 UNITS/ML SUBCUT SCH ×4 (07:20→21:48)
[2019-05-29 07:39] LABS: PHOSPHORUS 6.4 mg/dL (2.5-4.9)
[2019-05-29] MEDS: ASPIRIN 81MG TABLET PO SCH ×2 (08:10→16:16)
[2019-05-29] MEDS: NIFEDIPINE XL 30MG TAB PO SCH (08:10)
[2019-05-29] MEDS: CARVEDILOL 3.125 MG TABLET PO SCH ×2 (08:11→21:42)
[2019-05-29] MEDS: HYDRALAZINE HCL 25MG TABLET PO SCH ×2 (08:11→21:00)
[2019-05-29] MEDS: CLOPIDOGREL 75MG TABLET PO SCH (08:12)
[2019-05-29] MEDS: RANOLAZINE 500 MG TAB.SR.12H PO SCH ×2 (08:12→21:42)
[2019-05-29] MEDS: FUROSEMIDE 40MG/4ML VIAL IVP SCH ×2 (09:00→12:23)
[2019-05-29 09:36] LABS: BG BASE EXCESS -4.3 mmol/L (-2.0-2.0); BG CARBOXYHEMOGLOBIN 0.2 % (0.5-1.5); BG DEOXYHEMOGLOBIN 5.5 % (0.0-5.0); BG FRACTION INSPIRED OXYGEN 32; BG HCO3 ACT 19.8 mmol/L (22.0-26.0); BG METHEMOGLOBIN 0.3 % (0.0-1.5); BG OXYGEN SATURATION 94.5 % (92.0-98.5); BG PCO2 32.1 mmHg (35.0-45.0); BG PH 7.407 (7.350-7.450); BG PO2 76.7 mmHg (75.0-100.0); BG SAMPLE SITE RIGHT BRACHIAL; BG TOTAL HEMOGLOBIN 8.6 g/dL (12.0-18.0); BG VENT MODE NASAL CANNULA
[2019-05-29] MEDS: ENOXAPARIN 30MG/0.3ML SYR SUBCUT SCH (17:01)
[2019-05-29] MEDS: FAMOTIDINE 20MG TABLET PO SCH (21:42)
[2019-05-29] MEDS: ATORVASTATIN CALCIUM 40MG TABLET PO SCH (21:42)
[2019-05-30] VITALS (12 sets, daily range): BP systolic 105–137; BP diastolic 45–75
[2019-05-30] MEDS: NITROGLYCERIN OINT 1GM/INCH UDPKT TD SCH ×4 (01:08→22:28)
[2019-05-30] MEDS: SODIUM CHLORIDE 0.9% INJ 3ML FLUSH IVF SCH ×3 (06:24→22:13)
[2019-05-30] MEDS: BLOOD SUGAR DIAGNOSTIC STRIP TEST SCH ×4 (06:24→21:00)
[2019-05-30 07:18] LABS: EOSINOPHILS % 2.6 % (0.0-5.0); HEMATOCRIT. 23.9 % (36.0-48.0); HEMOGLOBIN. 8.2 g/dL (12.0-16.0); LYMPHOCYTES % 16.5 % (20.0-50.0); MEAN CORPUSCULAR HEMOGLOBIN 31.4 pg (28.0-32.0); MEAN PLATELET VOLUME 9.7 fl (7.4-10.4); MONOCYTES % 8.7 % (2.0-8.0); NEUTROPHILS % 71.2 % (40.0-76.0); PLATELET 228 x1000/uL (130-400)
[2019-05-30] MEDS: INSULIN LISPRO 100 UNITS/ML SUBCUT SCH ×4 (07:42→21:00)
[2019-05-30] MEDS: ONDANSETRON HCL 4MG/2ML INJ IV PRN ×2 (07:50→17:52)
[2019-05-30] MEDS: HYDRALAZINE HCL 25MG TABLET PO SCH ×2 (09:00→21:00)
[2019-05-30] MEDS: FUROSEMIDE 40MG/4ML VIAL IVP SCH (09:00)
[2019-05-30] MEDS: RANOLAZINE 500 MG TAB.SR.12H PO SCH ×2 (09:31→22:12)
[2019-05-30] MEDS: NIFEDIPINE XL 30MG TAB PO SCH (09:31)
[2019-05-30] MEDS: CARVEDILOL 3.125 MG TABLET PO SCH ×2 (09:31→22:13)
[2019-05-30] MEDS: ASPIRIN 81MG TABLET PO SCH ×2 (09:31→17:52)
[2019-05-30] MEDS: CLOPIDOGREL 75MG TABLET PO SCH (09:31)
[2019-05-30 09:32] LABS: PROTHROMBIN TIME 10.2 sec (9.6-11.0)
[2019-05-30] MEDS ORDERED: LIDOCAINE HCL 1% 20ML VIAL (Pyxis) INJ ONE (09:52)
[2019-05-30 12:56] LABS: HEPATITIS A AB IGM NEGATIVE (NEGATIVE); HEPATITIS B SURFACE ANTIGEN NEGATIVE
[2019-05-30 15:33] LABS: HEPATITIS B SURFACE AB < 3.1 mIU/mL
[2019-05-30] MEDS: FAMOTIDINE 20MG TABLET PO SCH (22:10)
[2019-05-30] MEDS: ATORVASTATIN CALCIUM 40MG TABLET PO SCH (22:12)
[2019-05-30] MEDS: ACETAMINOPHEN 325MG TABLET PO PRN (22:29)
[2019-05-30 23:10] LABS: BG BASE EXCESS -1.1 mmol/L (-2.0-2.0); BG CARBOXYHEMOGLOBIN 0.3 % (0.5-1.5); BG DEOXYHEMOGLOBIN 8.4 % (0.0-5.0); BG FRACTION INSPIRED OXYGEN 32; BG HCO3 ACT 23.9 mmol/L (22.0-26.0); BG METHEMOGLOBIN 0.1 % (0.0-1.5); BG OXYGEN SATURATION 91.6 % (92.0-98.5); BG OXYHEMOGLOBIN 91.2 % (94.0-97.0); BG PCO2 40.6 mmHg (35.0-45.0); BG PH 7.387 (7.350-7.450); BG PO2 66.9 mmHg (75.0-100.0); BG SAMPLE SITE RIGHT BRACHIAL; BG VENT MODE NASAL CANNULA
[2019-05-31] VITALS (10 sets, daily range): BP systolic 113–145; BP diastolic 52–69
[2019-05-31] MEDS: SODIUM CHLORIDE 0.9% INJ 3ML FLUSH IVF SCH ×3 (05:49→21:46)
[2019-05-31] MEDS: NITROGLYCERIN OINT 1GM/INCH UDPKT TD SCH ×3 (05:49→11:54)
[2019-05-31] MEDS: BLOOD SUGAR DIAGNOSTIC STRIP TEST SCH ×4 (06:31→20:33)
[2019-05-31] MEDS: INSULIN LISPRO 100 UNITS/ML SUBCUT SCH ×4 (07:20→20:33)
[2019-05-31 07:33] LABS: BASOPHILS % 0.8 % (0.0-2.0); EOSINOPHILS % 3.2 % (0.0-5.0); HEMATOCRIT. 23.5 % (36.0-48.0); HEMOGLOBIN. 7.8 g/dL (12.0-16.0); LYMPHOCYTES % 14.3 % (20.0-50.0); MEAN CORPUSCULAR HEMOGLOBIN 31.3 pg (28.0-32.0); MEAN CORPUSCULAR VOLUME 93.6 fL (81.0-99.0); MEAN PLATELET VOLUME 9.5 fl (7.4-10.4); MONOCYTES % 10.4 % (2.0-8.0); NEUTROPHILS % 71.3 % (40.0-76.0); PLATELET 220 x1000/uL (130-400); RED BLOOD CELL COUNT 2.51 mill/uL (4.2-5.4); RED CELL DISTRIBUTION WIDTH 15.7 % (11.6-14.6)
[2019-05-31 07:54] LABS: CHLORIDE 112 mEq/L (98-107)
[2019-05-31] MEDS: RANOLAZINE 500 MG TAB.SR.12H PO SCH (08:58)
[2019-05-31] MEDS: CLOPIDOGREL 75MG TABLET PO SCH (08:58)
[2019-05-31] MEDS: CARVEDILOL 3.125 MG TABLET PO SCH ×2 (08:58→21:41)
[2019-05-31] MEDS: HYDRALAZINE HCL 25MG TABLET PO SCH ×2 (08:58→21:00)
[2019-05-31] MEDS: ASPIRIN 81MG TABLET PO SCH ×2 (08:59→17:29)
[2019-05-31] MEDS: NIFEDIPINE XL 30MG TAB PO SCH (08:59)
[2019-05-31] MEDS: FUROSEMIDE 40MG/4ML VIAL IVP SCH (08:59)
[2019-05-31] MEDS: ONDANSETRON HCL 4MG/2ML INJ IV PRN (09:01)
[2019-05-31] MEDS: METOCLOPRAMIDE 10MG/10 ML UDC PO SCH ×3 (11:53→21:42)
[2019-05-31 13:08] LABS: BG BASE EXCESS -4.6 mmol/L (-2.0-2.0); BG CARBOXYHEMOGLOBIN 0.3 % (0.5-1.5); BG DEOXYHEMOGLOBIN 13.8 % (0.0-5.0); BG FRACTION INSPIRED OXYGEN 21; BG METHEMOGLOBIN 0.1 % (0.0-1.5); BG OXYGEN SATURATION 86.1 % (92.0-98.5); BG OXYHEMOGLOBIN 85.8 % (94.0-97.0); BG PCO2 34.3 mmHg (35.0-45.0); BG PH 7.383 (7.350-7.450); BG PO2 51.2 mmHg (75.0-100.0); BG SAMPLE SITE RIGHT RADIAL; BG TOTAL HEMOGLOBIN 8.5 g/dL (12.0-18.0); BG VENT MODE ROOM AIR
[2019-05-31] MEDS ORDERED: FAMOTIDINE 20MG TABLET PO SCH (21:00)
[2019-05-31] MEDS ORDERED: EPOETIN ALFA 4000UNITS/ML VIAL SUBCUT SCH (21:00)
[2019-05-31] MEDS: ATORVASTATIN CALCIUM 40MG TABLET PO SCH (21:41)
[2019-05-31] MEDS: ACETAMINOPHEN 325MG TABLET PO PRN (21:42)
[2019-06-01] VITALS (21 sets, daily range): BP systolic 99–157; BP diastolic 45–67
[2019-06-01] MEDS: SODIUM CHLORIDE 0.9% INJ 3ML FLUSH IVF SCH ×2 (05:22→13:11)
[2019-06-01 05:43] LABS: HEMATOCRIT. 22.7 % (36.0-48.0); HEMOGLOBIN. 7.8 g/dL (12.0-16.0); MEAN CORPUSCULAR HEMOGLOBIN 31.7 pg (28.0-32.0); MEAN CORPUSCULAR VOLUME 92.4 fL (81.0-99.0); PLATELET 204 x1000/uL (130-400); RED BLOOD CELL COUNT 2.46 mill/uL (4.2-5.4); RED CELL DISTRIBUTION WIDTH 16.5 % (11.6-14.6)
[2019-06-01 06:05] LABS: PHOSPHORUS 3.7 mg/dL (2.5-4.9)
[2019-06-01] MEDS: METOCLOPRAMIDE 10MG/10 ML UDC PO SCH ×3 (06:25→16:50)
[2019-06-01] MEDS: BLOOD SUGAR DIAGNOSTIC STRIP TEST SCH ×3 (06:41→16:50)
[2019-06-01] MEDS: INSULIN LISPRO 100 UNITS/ML SUBCUT SCH ×3 (07:07→18:42)
[2019-06-01] MEDS ORDERED: FENTANYL CITRATE/PF 50MCG/ML 2ML VIAL ONE (07:29)
[2019-06-01] MEDS ORDERED: CEFAZOLIN 1000MG PREMIX 50 ML IV ONE (07:29)
[2019-06-01] MEDS ORDERED: LIDOCAINE HCL 1% 20ML VIAL (Pyxis) INJ ONE (07:39)
[2019-06-01] MEDS ORDERED: SODIUM BICARBONATE 4% (2.4MEQ) 5ML VIAL IV ONE (07:39)
[2019-06-01] MEDS ORDERED: LIDOCAINE HCL/EPINEPHRINE 1%-EPI 1:100,000 20 ML VIAL ONE (07:39)
[2019-06-01] MEDS ORDERED: CEFAZOLIN 1000MG PREMIX 50 ML IV NR (08:00)
[2019-06-01] MEDS ORDERED: FENTANYL CITRATE/PF 50MCG/ML 2ML VIAL IV ONE (08:30)
[2019-06-01] MEDS ORDERED: ISOSORBIDE MONONITRATE 30MG TABLET SR 24HR PO SCH (09:00)
[2019-06-01] MEDS: ONDANSETRON HCL 4MG/2ML INJ IV PRN (09:16)
[2019-06-01] MEDS: CLOPIDOGREL 75MG TABLET PO SCH (09:26)
[2019-06-01] MEDS: CARVEDILOL 3.125 MG TABLET PO SCH (09:26)
[2019-06-01] MEDS: FUROSEMIDE 40MG/4ML VIAL IVP SCH (09:26)
[2019-06-01] MEDS: ASPIRIN 81MG TABLET PO SCH ×2 (09:26→18:42)
[2019-06-01] MEDS: NIFEDIPINE XL 30MG TAB PO SCH (09:26)
[2019-06-01 09:40] LABS: PLATELET ESTIMATE NORMAL
[2019-06-01] MEDS: HYDRALAZINE HCL 25MG TABLET PO SCH (11:09)
[2019-06-01] MEDS ORDERED: FURO-151 PO (16:24)
[2019-06-01] MEDS ORDERED: HYDR-4134 MT (16:25)
[2019-06-01] MEDS ORDERED: ISOS30TA6 PO (16:28)
[2019-06-01] MEDS ORDERED: CLOP75TA4 PO (16:32)
[2019-06-01] MEDS ORDERED: LIP40 MT (16:34)
[2019-06-01] MEDS ORDERED: ONDA4TAB5 PO (16:35)
[2019-06-01] MEDS ORDERED: INSLIS SUBCUT (16:37)
== END 2019-06-01 19:10 | disposition home health service (06) | DRG 280 ==
LOC: ER 08:19 → ORIP 10:33 → CVICU 13:01 → 3WST 05-26 13:25
PROVIDERS: ADMIT Internal Medicine; ATTEND Internal Medicine
PROC: 4A023N7 Measurement of Cardiac Sampling and Pressure, Left Heart, Percutaneous Approach (ICD-10-PCS; principal; 2019-05-23)
PROC: B2111ZZ Fluoroscopy of Multiple Coronary Arteries using Low Osmolar Contrast (ICD-10-PCS; 2019-05-23)
PROC: 5A09457 Assistance with Respiratory Ventilation, 24-96 Consecutive Hours, Continuous Positive Airway Pressure (ICD-10-PCS; 2019-05-23)
PROC: 5A09357 Assistance with Respiratory Ventilation, Less than 24 Consecutive Hours, Continuous Positive Airway Pressure (ICD-10-PCS; 2019-05-25)
PROC: 02HV33Z Insertion of Infusion Device into Superior Vena Cava, Percutaneous Approach (ICD-10-PCS; 2019-05-30)
PROC: B5181ZA Fluoroscopy of Superior Vena Cava using Low Osmolar Contrast, Guidance (ICD-10-PCS; 2019-05-30)
PROC: B548ZZA Ultrasonography of Superior Vena Cava, Guidance (ICD-10-PCS; 2019-05-30)
PROC: 0JH63XZ Insertion of Tunneled Vascular Access Device into Chest Subcutaneous Tissue and Fascia, Percutaneous Approach (ICD-10-PCS; 2019-06-01)
PROC: 02HV33Z Insertion of Infusion Device into Superior Vena Cava, Percutaneous Approach (ICD-10-PCS; 2019-06-01)
PROC: B5181ZA Fluoroscopy of Superior Vena Cava using Low Osmolar Contrast, Guidance (ICD-10-PCS; 2019-06-01)
PROC: 5A1D70Z Performance of Urinary Filtration, Intermittent, Less than 6 Hours Per Day (ICD-10-PCS; 2019-06-01)
DX: I13.0 Hypertensive heart and chronic kidney disease with heart failure and stage 1 through stage 4 chronic kidney disease, or unspecified chronic kidney disease (principal); I50.23 Acute on chronic systolic (congestive) heart failure; I21.4 Non-ST elevation (NSTEMI) myocardial infarction; J96.01 Acute respiratory failure with hypoxia; I22.0 Subsequent ST elevation (STEMI) myocardial infarction of anterior wall; N17.9 Acute kidney failure, unspecified; N39.0 Urinary tract infection, site not specified; E87.1 Hypo-osmolality and hyponatremia; N18.4 Chronic kidney disease, stage 4 (severe); I25.110 Atherosclerotic heart disease of native coronary artery with unstable angina pectoris; I27.20 Pulmonary hypertension, unspecified; I25.5 Ischemic cardiomyopathy; E11.22 Type 2 diabetes mellitus with diabetic chronic kidney disease; E11.40 Type 2 diabetes mellitus with diabetic neuropathy, unspecified; E78.5 Hyperlipidemia, unspecified; E78.00 Pure hypercholesterolemia, unspecified; E11.319 Type 2 diabetes mellitus with unspecified diabetic retinopathy without macular edema; E87.5 Hyperkalemia; I34.0 Nonrheumatic mitral (valve) insufficiency; K59.00 Constipation, unspecified; K21.9 Gastro-esophageal reflux disease without esophagitis; M81.0 Age-related osteoporosis without current pathological fracture; Z79.02 Long term (current) use of antithrombotics/antiplatelets; Z79.4 Long term (current) use of insulin; Z79.899 Other long term (current) drug therapy; Z99.2 Dependence on renal dialysis; Z79.82 Long term (current) use of aspirin; Z82.49 Family history of ischemic heart disease and other diseases of the circulatory system; Z83.3 Family history of diabetes mellitus; Z95.5 Presence of coronary angioplasty implant and graft
CPT/HCPCS: 36415; 36558; 36589; 36600; 71045; 76770; 76937; 77001; 80048; 80053; 82375; 82805; 82962; 83540; 83550; 83735; 83880; 84100; 84132; 84484; 85025; 85347; 86705; 86706; 86709; 86803; 87340; 93005; 93306; 93458; 94660; 96365; 96375; 97162; 97166; 99152; 99153; 99291; C1726; C1750; C1752; C1769; C1887; C1893; J0690; J0885; J1642; J1644; J1650; J1815; J1940; J2250; J2270; J2370; J2405; J3010; J3490; J7620; J8597; Q9967; A4315; G0500

== ENCOUNTER → 2019-06-22 | Day surgery (SDC) | payer MEDICARE, MEDICAID ==
[~2019-06-22] MED LIST changes: -AMLO10TA80 PO; -AMLO25PO MC; -ATOR-2 PO; +CLOP75TA4 PO; -DILT240C91 PO; -EZET10TA13 PO; +FURO-151 PO; -FURO20TA4 PO; +HYDR-4134 MT; -HYDR12.529 PO; +INSLIS SUBCUT; -INSNPH SUBCUT; +ISOS30TA6 PO; +LIDOCAINE HCL 1% 20ML VIAL (Pyxis) INJ ONE; +LIP40 MT; -NIFE20CA PO; +ONDA4TAB5 PO; -PRO1 MT; +SODIUM BICARBONATE 4% (2.4MEQ) 5ML VIAL IV ONE
== END | disposition home or self-care (01) ==
LOC: ANGIO 09:01
PROVIDERS: ATTEND Internal Medicine Nephrology
DX: R94.4 Abnormal results of kidney function studies (principal); Z79.82 Long term (current) use of aspirin; Z79.4 Long term (current) use of insulin; Z79.899 Other long term (current) drug therapy; Z82.49 Family history of ischemic heart disease and other diseases of the circulatory system; Z83.3 Family history of diabetes mellitus
CPT/HCPCS: 36589; J3490